=== PATIENT | male | born 1945 | race Caucasian/White ===

== ENCOUNTER 2017-01-23 06:26 | Day surgery (SDC) | payer MEDICARE, BC ==
[2017-01-23] MEDS ORDERED: NS 0.9% 1000 ML* 1,000 ML IV ONE ×2 (06:42→07:44)
[2017-01-23] MEDS ORDERED: Ketorolac INJ* 30 MG/ML 1 ML VIAL IV PUSH ONE (06:43)
[2017-01-23 07:18] LABS: Hematocrit 40 % (42-52); Hemoglobin 13.8 g/dl (14.0-18.0); Mean Corpuscular HGB Conc 34 g/dl (31-36); Mean Corpuscular Hemoglobin 31 pg (27-31); Mean Corpuscular Volume 91 fL (80-94); Mean Platelet Volume 8 um3 (7.4-10.4); Red Cell Distribution Width 14 % (10.5-15); White Blood Count 4.8 10^3/ul (3.5-10.8)
[2017-01-23 07:28] LABS: Albumin 4.4 g/dL (3.2-5.2); BUN/Creatinine Ratio 16.3 (8-20); Calcium 9.8 mg/dL (8.6-10.3); EGFR African American 70.2 (>60); EGFR Non-African American 54.6 (>60); Globulin 3.9 g/dL (2-4); Potassium 4.3 mmol/L (3.5-5.0); Total Bilirubin 0.6 mg/dL (0.2-1.0); Total Protein 8.3 g/dL (6.4-8.9)
--- NOTE | 2017-01-23 07:29 | RAD ---
INDICATION: Right flank abdominal pain. COMPARISON: There are no prior studies available for comparison. TECHNIQUE: A CT scan of the abdomen and pelvis was performed without intravenous or oral contrast. Contiguous axial sections were obtained from the lung bases through the symphysis pubis. Images were reconstructed in the coronal and sagittal planes. FINDINGS: There are small dependent infiltrates in both lower lobes suggestive of atelectasis. No pleural effusion is present. The liver and spleen are within normal limits in size without significant focal abnormality on this noncontrast study. No calcified gallstones are seen. The pancreas appears to be within normal limits in size. The adrenal glands appear to be within normal limits. The right kidney is slightly enlarged. There is perinephric stranding around the right kidney. There are 2 calculi in the mid and inferior portion of the right kidney measuring up to 4 mm in size. In addition, there is a calculus at the ureteropelvic junction measuring 5 x 8 mm in size causing moderate hydronephrosis. The aorta is ectatic and mildly tortuous. There is moderate calcific plaque present. No significant enlarged retroperitoneal lymph nodes are seen. The stomach, small and large bowel appear nondistended. The appendix is not visualized. There is mild descending and sigmoid diverticulosis without evidence for diverticulitis. No free intraperitoneal air or fluid is seen. No significant focal osseous abnormality is seen. IMPRESSION: THERE IS A 5 X 8 MM CALCULUS AT THE RIGHT URETEROPELVIC JUNCTION CAUSING MODERATE HYDRONEPHROSIS. THERE ARE 2 ADDITIONAL RIGHT RENAL CALCULI.
[2017-01-23] MEDS ORDERED: Tamsulosin CAP* 0.4 MG PO ONE (07:44)
[2017-01-23 09:04] LABS: Urine Bacteria Absent (Absent); Urine Bilirubin Negative (Negative); Urine Glucose Negative (Negative); Urine Nitrite Negative (Negative)
[2017-01-23] MEDS ORDERED: cefTRIAXone(*) 2 GM in NS 0.9% 100 ML* 100 ML IVPB ONE (09:58)
--- NOTE | 2017-01-23 10:01 | RAD ---
INDICATION: Right renal calculus. COMPARISON: Correlation is made with a prior CT of the abdomen and pelvis of the same date. TECHNIQUE: Frontal supine films of the abdomen were obtained. FINDINGS: The small bowel and colon appear nondistended. There is a faint calcific density which projects lateral to the L2 vertebral body on the right side which likely corresponds with the calculus noted at the right ureteropelvic junction. IMPRESSION: RIGHT URETEROPELVIC JUNCTION CALCULUS.
--- NOTE | 2017-01-23 10:20 | ED ---
I, Oh,Edith, scribed for Ayaz Malik MD on 01/23/17 at 0757 . Back Pain - HPI Summary HPI Summary: This 71 y/o male presents to ED with acute right lower back pain since 0200 AM this morning. Pt states that pain is waxing and waning and kept waking him up WHAT JOB TITLES MEAN. Pain does not radiates. Pain is currently dissolved after pain meds at time of initial evaluation. Pt denies any hx of back issues or kidney stones. Positive nausea. Negative dysuria, increased urinary urgency, fever, chills, or CP. - History of Current Complaint Chief Complaint: EDFlankPain Stated Complaint: RIGHT LOWER BACK PAIN Time Seen by Provider: 01/23/17 07:20 Hx Obtained From: Patient, Medical Records Onset/Duration: Sudden Onset Onset/Duration: Started Hours Ago, Atraumatic, Resolved Back Pain Location: Is Discrete @ - right lower back Pain Intensity: 6 Pain Scale Used: 0-10 Numeric Character: Dull Aggravating Symptom(s): Movement Alleviating Symptom(s): Nothing Associated Signs And Symptoms: Negative: Fever, Abdominal Pain, Bladder Incontinence - Allergies/Home Medications Allergies/Adverse Reactions: Allergies Allergy/AdvReac Type Severity Reaction Status Date / Time No Known Allergies Allergy Verified 09/04/16 08:53 PMH/Surg Hx/FS Hx/Imm Hx Endocrine/Hematology History: Denies: Hx Diabetes, Hx Thyroid Disease Cardiovascular History: Denies: Hx Congestive Heart Failure, Hx Hypertension, Hx Pacemaker/ICD, Other Cardiovascular Problems/Disorders Respiratory History: Reports: Hx Asthma, Hx Chronic Obstructive Pulmonary Disease (COPD) Denies: Other Respiratory Problems/Disorders GI History: Reports: Hx Gastroesophageal Reflux Disease - OK ON DAILY MED Denies: Hx Ulcer History: Denies: Hx Renal Disease Musculoskeletal History: Reports: Hx Arthritis - KNEES, Other Musculoskeletal History - LIMITED REACH-SPLITTING WOOD Sensory History: Reports: Hx Cataracts - PRE CATARACTS, Hx Contacts or Glasses - GLASSES Denies: Hx Hearing Aid Opthamlomology History: Reports: Hx Cataracts - PRE CATARACTS, Hx Contacts or Glasses - GLASSES Psychiatric History: Denies: Hx Panic Disorder - Surgical History Surgery Procedure, Year, and Place: Rt SHOULDER - RCT -@ [facility] 12/2015. JAIME KNEE REPLACEMENT - @[facility]. SHOULDER -RCT @ [facility] – [place] Hx Anesthesia Reactions: No Infectious Disease History: No Infectious Disease History: Denies: Hx Hepatitis, Hx Human Immunodeficiency Virus (HIV), Traveled Outside the [place] in Last 30 Days - Family History Known Family History: Positive: Diabetes - Positive to mother - Social History Alcohol Use: Occasionally Hx Substance Use: No Substance Use Type: Reports: None Hx Tobacco Use: Yes Smoking Status (MU): Former Smoker Review of Systems Negative: Fever, Chills Negative: Chest Pain Positive: Nausea. Negative: Abdominal Pain Negative: dysuria, urgency Positive: Other - right lower back pain Negative: Anxious, Depressed All Other Systems Reviewed And Are Negative: Yes Physical Exam Triage Information Reviewed: Yes Vital Signs On Initial Exam: Initial Vitals BP 162/89 01/23/17 06:32 Vital Signs Reviewed: Yes Appearance: Positive: Well-Appearing, No Pain Distress Skin: Positive: Warm, Skin Color Reflects Adequate Perfusion, Dry Head/Face: Positive: Normal Head/Face Inspection Eyes: Positive: EOMI, KARLA Neck: Positive: Supple, Nontender Respiratory/Lung Sounds: Positive: Clear to Auscultation, Breath Sounds Present Cardiovascular: Positive: RRR, Pulses are Symmetrical in both Upper and Lower Extremities Abdomen Description: Positive: Nontender, Soft Bowel Sounds: Positive: Present Musculoskeletal: Positive: Strength/ROM Intact Neurological: Positive: Sensory/Motor Intact, Alert, Oriented to Person Place, Time Psychiatric: Positive: Affect/Mood Appropriate AVPU Assessment: Alert - [place] Coma Scale Coma Scale Total: 15 Diagnostics - Vital Signs Vital Signs Temp Pulse Resp BP Pulse Ox 01/23/17 07:42 60 94 01/23/17 07:40 146/80 01/23/17 06:33 98.6 F 63 18 162/89 94 01/23/17 06:32 162/89 - Laboratory Lab Results: Lab Results 01/23/17 01/23/17 Range/Units 06:35 06:35 WBC 4.8 (3.5-10.8) 10^3/ul RBC 4.40 (4.0-5.4) 10^6/ul Hgb 13.8 L (14.0-18.0) g/dl Hct 40 L (42-52) % MCV 91 (80-94) fL MCH 31 (27-31) pg MCHC 34 (31-36) g/dl RDW 14 (10.5-15) % Plt Count 241 (150-450) 10^3/ul MPV 8 (7.4-10.4) um3 Neut % (Auto) 57.5 (38-83) % Lymph % (Auto) 19.0 L (25-47) % [place] % (Auto) 20.9 H (1-9) % Eos % (Auto) 1.9 (0-6) % Baso % (Auto) 0.7 (0-2) % Absolute Neuts (auto) 2.8 (1.5-7.7) 10^3/ul Absolute Lymphs (auto) 0.9 L (1.0-4.8) 10^3/ul Absolute Monos (auto) 1.0 H (0-0.8) 10^3/ul Absolute Eos (auto) 0.1 (0-0.6) 10^3/ul Absolute Basos (auto) 0 (0-0.2) 10^3/ul Absolute Nucleated RBC 0.01 10^3/ul Nucleated RBC % 0.2 Sodium 137 (133-145) mmol/L Potassium 4.3 (3.5-5.0) mmol/L Chloride 104 (101-111) mmol/L Carbon Dioxide 23 (22-32) mmol/L Anion Gap 10 (2-11) mmol/L BUN 21 (6-24) mg/dL Creatinine 1.29 H (0.67-1.17) mg/dL Est GFR ( Amer) 70.2 (>60) Est GFR (Non-Af Amer) 54.6 (>60) BUN/Creatinine Ratio 16.3 (8-20) Glucose 136 H (70-100) mg/dL Calcium 9.8 (8.6-10.3) mg/dL Total Bilirubin 0.60 (0.2-1.0) mg/dL AST 30 (13-39) U/L ALT 29 (7-52) U/L Alkaline Phosphatase 54 (34-104) U/L Total Protein 8.3 (6.4-8.9) g/dL Albumin 4.4 (3.2-5.2) g/dL Globulin 3.9 (2-4) g/dL Albumin/Globulin Ratio 1.1 (1-3) Result Diagrams: 01/23/17 06:35 01/23/17 06:35 Lab Statement: Any lab studies that have been ordered have been reviewed, and results considered in the medical decision making process. - Radiology Abd Xray Interpretation: Positive (See Comments) - RIGHT URETEROPELVIC JUNCTION CALCULUS. Radiology Interpretation Completed By: Radiologist - CT Ab/P CT Interpretation: Positive (See Comments) - THERE IS A 5 X 8 MM CALCULUS AT THE RIGHT URETEROPELVIC JUNCTION CAUSING MODERATE HYDRONEPHROSIS. THERE ARE 2 ADDITIONAL RIGHT RENAL CALCULI. CT Interpretation Completed By: Radiologist Re-Evaluation - Re-Evaluation First Eval Re-Evaluation Time: 09:16 Comment: MD in room to update pt on CT imaging results. Second Eval Re-Evaluation Time: 09:40 Comment: Update pt on urology consult. Pt confirms that he last ate 1800 PM yesterday. Plan of care involving OR and r/b/a of possible procedures, and pt is agreeable to stent. Back Pain Course/Dx - Course Assessment/Plan: WELL IN ED. DISCUSSED RESULTS WITH PATIENT AND DR JONES. ADMIT STABLE TO OR FOR STENT. - Diagnoses Provider Diagnoses: Kidney stone on right side - Provider Notifications Discussed Care of Patient With: Dr. Jones (Urology) paged at 0916 AM. Call returned at 0928 AM Discharge - Discharge Plan Condition: Stable Disposition: ADMITTED TO [facility] Referrals: Olinda ALEMAN CRACKER SPRAYER,Hillary [Primary Care Provider] - The documentation as recorded by the Justo vogel Soohyun accurately reflects the service I personally performed and the decisions made by me, Ayaz Malik MD.
[2017-01-23] MEDS ORDERED: Iohexol 180 (CONTRAST) 10 ML SDV IV ONE (10:47)
[2017-01-23] MEDS ORDERED: fentaNYL* 50 MCG/ML 2 ML VIAL (100 MCG VIAL) ONE (11:22)
[2017-01-23] MEDS ORDERED: Propofol* 10 MG/ML 20 ML BTL IV PUSH ONE (11:23)
[2017-01-23] MEDS ORDERED: Midazolam* 1 MG/ML 2 ML VIAL (2 MG) ONE (11:23)
[2017-01-23] MEDS ORDERED: Tamsulosin CAP* 0.4 MG ONE (12:14)
[2017-01-23] MEDS ORDERED: fentaNYL* 50 MCG/ML 2 ML VIAL (100 MCG VIAL) IV PRN (12:19)
[2017-01-23] MEDS ORDERED: Ketorolac INJ* 30 MG/ML 1 ML VIAL IV PRN (12:19)
[2017-01-23] MEDS ORDERED: Gentamicin ADULT (*) 40 MG/ML VIAL ONE (12:39)
--- NOTE | 2017-01-23 12:52 | RAD ---
INDICATION: Kidney stone right ureteropelvic junction, stent placement. COMPARISON: Comparison is made with a prior CT of the abdomen and pelvis from January 23, 2017. TECHNIQUE: 17 seconds of intermittent fluoroscopic guidance were provided and 4 spot films of the abdomen were centered on the right side. FINDINGS: There is partial opacification of the right renal collecting system. There is a small extravasation of contrast present adjacent to the renal pelvis. Subsequently there is placement of a double-J stent catheter on the right. The proximal portion of the catheter is likely within the distal portion of the renal pelvis. The distal portion projects over the region of the bladder. IMPRESSION: INTRAOPERATIVE CONTROL FILMS. CPT II Codes: 6045F
[2017-01-23] MEDS ORDERED: Furosemide IV* 10 MG/ML 2 ML VIAL (20 MG) ONE (13:08)
[2017-01-23] MEDS ORDERED: Ketorolac INJ* 30 MG/ML 1 ML VIAL ONE (13:27)
[2017-01-23 14:00] VITALS: BP 153/84
--- NOTE | 2017-01-23 14:48 | RAD ---
INDICATION: Postop stent placement. COMPARISON: Comparison is made with a prior CT and KUB series of the same date. TECHNIQUE: Frontal supine films of the abdomen were obtained. FINDINGS: The small bowel and colon appear nondistended. There is a double-J stent catheter present on the right side. There is a 6 mm calculus which projects over the lower pole of the right kidney. IMPRESSION: RIGHT RENAL CALCULUS, STATUS POST DOUBLE J STENT CATHETER PLACEMENT.
--- NOTE | 2017-01-23 15:24 | HP ---
ADMITTING HISTORY AND PHYSICAL: DATE OF ADMISSION: 01/23/17 SURGEON: Dr. Jones ADMITTING DIAGNOSES: 1. Right hydronephrosis. 2. Obstructing calculus, right proximal ureter. 3. Right renal calculi. PLANNED PROCEDURE: Today is urgent right stent insertion (to be followed in near future by lithotripsy). ADMITTING HISTORY AND PHYSICAL: Micky Lai is a 71-year-old gentleman who presented with right flank pain and nausea. He was noted to have an 8 x 5 mm calculus in the right proximal ureter with moderate right hydronephrosis and additional right renal calculi. PAST MEDICAL HISTORY: Significant for: 1. COPD. 2. Gastroesophageal reflux. MEDICATIONS ON ADMISSION: 1. Advair Diskus 100-50 one puff twice daily. 2. Aleve 220 mg at bedtime. 3. Flonase 2 sprays on both nostrils daily. 4. Vitamin D and CoQ10. 5. Zantac 75 mg 1 tablet daily. 6. Zyrtec 10 mg daily. ALLERGIES: No known drug allergies. REVIEW OF SYSTEMS: He denies any chest pain or shortness of breath. There is no history of diabetes mellitus or any major systemic illness. PHYSICAL EXAMINATION GENERAL: Reveals a pleasant elderly gentleman. VITAL SIGNS: Blood pressure is 159/81, pulse 72 per minute, regular, temperature 37.3. CARDIOVASCULAR EXAM: Regular rate and rhythm. S1 and S2. LUNGS: Clear bilaterally. ABDOMEN: Soft with right flank tenderness. ASSESSMENT AND PLAN: I reviewed the labs and the imaging studies and he indeed does have an obstructing calculus in the right proximal ureter. I discussed the options with him including the option of trying conservative management and alpha blockers, but because of the proximal location of the calculus and the presence of additional calculi in the kidney, he would like to proceed with right stent insertion, to be followed in the near future by lithotripsy. CC: DILAN Cook; Jez Jones MD * [id number]/[facility] #: [id number] MTDD
--- NOTE | 2017-01-23 23:52 | OP ---
DATE OF OPERATION: 01/23/17 - [facility] DATE OF : [birth year] - AGE: 71 years, male. SURGEON: Jez Jones MD ANESTHESIOLOGIST: Dr. Medellin. ANESTHESIA: Intravenous sedation. PRE-OP DIAGNOSES: 1. Right hydronephrosis. 2. Obstructing calculus, right proximal ureter. 3. Right renal calculi. POST-OP DIAGNOSES: 1. Right hydronephrosis. 2. Obstructing calculus, right proximal ureter. 3. Right renal calculi. 4. Prostate enlargement. OPERATIVE PROCEDURES: Cystoscopy, right retrograde pyelogram, right ureteral calculus manipulation, and right stent insertion. COMPLICATIONS: None. INDICATIONS: Micky Lai is a 71-year-old gentleman who presented with right flank pain and was noted to have an obstructing calculus. OPERATIVE FINDINGS: 1. Normal-appearing urethra. 2. Moderately enlarged vascular prostate. 3. Normal-appearing bladder. 4. Right hydronephrosis secondary to ureteropelvic junction calculus. POSTOPERATIVE CONDITION: Stable. STENT USED: 6-Icelandic stent, right ureter. DESCRIPTION OF PROCEDURE: After administration of intravenous sedation, the patient was placed in dorsal lithotomy position. Sequential compression devices were in place and functioning. Initial cystoscopy revealed normal- appearing urethra, moderately enlarged prostate. The bladder was examined and was unremarkable. Retrograde pyelogram revealed right hydronephrosis with a significantly dilated renal pelvis. A 6-Icelandic ureteral stent was introduced after the calculus had been manipulated proximally and stent was advanced under fluoroscopic monitoring with good proximal and distal positioning obtained. The patient tolerated the procedure satisfactorily and was transferred back to the recovery area in stable condition. [id number]/[facility] #: [id number] [facility]
== END 2017-01-23 10:58 | disposition home or self-care (01) ==
LOC: ED 06:26 → OR 10:58
PROVIDERS: ATTEND Urology
DX: N13.2 Hydronephrosis with renal and ureteral calculous obstruction (principal); J44.9 Chronic obstructive pulmonary disease, unspecified; K21.9 Gastro-esophageal reflux disease without esophagitis
CPT/HCPCS: 36415; 74000; 74176; 74420; 80053; 81003; 81015; 85025; 87077; 87086; 87186; 96374; 96375; 99283; C1876; J0696; J1580; J1885; J1940; J2250; J2704; J3010

== ENCOUNTER → 2017-02-01 10:13 | Day surgery (SDC) | payer MEDICARE, BC ==
[~2017-02-01 10:13] MED LIST: Buffered Lidocaine 1% SYRIN* 3 ML/SYR SYRINGE INTRADERM ONE; Dexamethasone IV* 4 MG/ML 1 ML (4 MG) ONE; EPHEDrine (Pressors)* 50 MG/ML VIAL ONE; HYDROmorphone* 1 MG/ML 1 ML SYR IV PRN; KETAMINE HCL* 50 MG/ML 10 ML VIAL ONE; Ketorolac INJ* 30 MG/ML 1 ML VIAL ONE; Lidocaine 2% PF* 5 ML VIAL ONE; Metoclopramide TAB* 10 MG ONE; Metoclopramide TAB* 10 MG PO ONE; Midazolam* 1 MG/ML 5 ML VIAL (5 MG) ONE; Ondansetron INJ* 2 MG/ML VIAL IV PRN; Ondansetron INJ* 2 MG/ML VIAL ONE; Propofol* 10 MG/ML 20 ML BTL IV PUSH ONE; cefTRIAXone(*) 2 GM ADDV.VIAL IVPB ONE; fentaNYL* 50 MCG/ML 2 ML VIAL (100 MCG VIAL) IV PRN; fentaNYL* 50 MCG/ML 2 ML VIAL (100 MCG VIAL) ONE; oxyCODONE/Acetamin 5/325 MG* TAB PO PRN
--- NOTE | 2017-02-01 10:58 | RAD ---
INDICATION: Right-sided nephrolithiasis COMPARISON: January 23, 2017 TECHNIQUE: A single view of the abdomen is submitted. FINDINGS: Bones: There are no acute bony findings. Soft tissues: The soft tissues appear normal. The psoas margins are sharp. Bowel gas pattern: Normal Calcifications: There is a 6 mm right renal calculus, unchanged. Other: Right ureteral stent, unchanged IMPRESSION: RIGHT-SIDED NEPHROLITHIASIS AND RIGHT URETERAL STENT, UNCHANGED
[2017-02-01 16:01] VITALS: BP 142/80
--- NOTE | 2017-02-01 17:24 | RAD ---
INDICATION: Postop right ureteral stent placement. COMPARISON: Comparison is made with a prior CT of the abdomen and pelvis from January 23, 2017 and a prior KUB series from earlier today approximately 7 hours earlier. TECHNIQUE: Frontal supine films of the abdomen were obtained. FINDINGS: The small bowel and colon appear nondistended. There is a double-J stent catheter present on the right side which appears unchanged. There is a 6 mm calculus which projects over the lower pole of the right kidney which appears unchanged. IMPRESSION: RIGHT RENAL CALCULUS, STATUS POST DOUBLE-J STENT CATHETER PLACEMENT.
--- NOTE | 2017-02-02 06:10 | OP ---
DATE OF OPERATION: 02/01/17 - [facility] DATE OF : [birth year] - AGE: 71 years, male. SURGEON: Jez Jones MD. ANESTHESIA: General. ANESTHESIOLOGIST: Dr. Cardoza. PRE-OP DIAGNOSIS: Right renal calculi. POST-OP DIAGNOSIS: Right renal calculi. OPERATIVE PROCEDURE: Shockwave lithotripsy of right renal calculus. COMPLICATIONS: None. POSTOPERATIVE CONDITION: Stable. INDICATIONS: Micky Lai is a 71-year-old gentleman who had undergone urgent right stent insertion for an obstructing calculus at the right ureteropelvic junction. He is now being brought in for lithotripsy. PROCEDURE: After induction of general anesthesia, the patient was placed on the lithotripsy table in supine position. The dominant calculus, which had previously been at the ureteropelvic junction was now in the lower pole of the right kidney. There was an additional smaller calculus in the upper pole. Attention was directed to the larger calculus. Shockwave lithotripsy was commenced at a rate of 60 shocks per minute. After the initial 300 shocks, there was a pause in lithotripsy for several minutes to minimize any potential trauma to the kidney. Lithotripsy was then resumed. The stone was fairly hard and a total of 2400 shocks were administered. The plan is to wait and obtain an x-ray in a few days to assess the degree of fragmentation prior to stent removal. The patient tolerated the procedure satisfactorily and was transferred back to the recovery area in stable condition. [id number]/[facility] #: [id number] MTDD
== END | disposition home or self-care (01) ==
LOC: OR 10:13
PROVIDERS: ATTEND Urology
DX: N20.0 Calculus of kidney (principal); J44.9 Chronic obstructive pulmonary disease, unspecified; G47.33 Obstructive sleep apnea (adult) (pediatric); D70.9 Neutropenia, unspecified
CPT/HCPCS: 74000; A9270-GY; J0696; J1100; J1885; J2250; J2405; J2704; J3010

== ENCOUNTER → 2017-02-10 08:05 | Day surgery (SDC) | payer MEDICARE, BC ==
--- NOTE | 2017-02-09 00:53 | HP ---
ADMITTING HISTORY AND PHYSICAL: DATE OF ADMISSION: 02/10/17 ADMITTING DIAGNOSIS: Right renal calculus. PLANNED PROCEDURE: Right ureteroscopy, pyeloscopy, possible laser lithotripsy of right renal calculus and right stent replacement. SURGEON: Dr. Jones. HISTORY OF PRESENT ILLNESS: Micky Lai is a 71-year-old gentleman who had recently been evaluated for an obstructing right ureteropelvic junction calculus. At that time, he was also noted to have additional right renal calculi. He had undergone right stent insertion followed by lithotripsy. On a followup x-ray, he was noted to have what appears to be a persistent 6 to 7 mm calculus adjacent to the proximal coil of the stent. I gave him the option of trying to remove the stent to see if he could pass this calculus or fragment spontaneously but because of the size he is concerned and would like to try and have an additional procedure to try to get rid of this calculus. PAST MEDICAL HISTORY: Significant for: 1. Renal calculi. 2. COPD. 3. Reflux. MEDICATIONS: 1. Aleve 220 mg a day. 2. Flonase 2 sprays on both nostrils daily. 3. Advair Diskus 1 puff twice daily. 4. Zantac 75 mg daily. 5. Zyrtec 10 mg daily. ALLERGIES: No known drug allergies. PHYSICAL EXAMINATION GENERAL: A pleasant healthy-appearing gentleman. VITAL SIGNS: Blood pressure is 120/82, pulse 65 per minute, regular, oxygen saturation 96% on room air. LUNGS: Clear bilaterally. CARDIOVASCULAR: Regular rate and rhythm. S1, S2. ABDOMEN: Soft with mild right flank tenderness. IMPRESSION: A 71-year-old gentleman with a persistent 6 to 7 mm calculus in the right kidney probably in the right renal pelvis. PLAN: Planned procedure is right ureteroscopy and pyeloscopy, possible laser lithotripsy and right stent replacement. [id number]/[facility] #: [id number] [facility]
[~2017-02-10 08:05] MED LIST changes: -Dexamethasone IV* 4 MG/ML 1 ML (4 MG) ONE; +DiMENhydriNATE IV* 50 MG/ML VIAL IV PUSH PRN; -EPHEDrine (Pressors)* 50 MG/ML VIAL ONE; -KETAMINE HCL* 50 MG/ML 10 ML VIAL ONE; -Ketorolac INJ* 30 MG/ML 1 ML VIAL ONE; -Lidocaine 2% PF* 5 ML VIAL ONE; -Metoclopramide TAB* 10 MG ONE; -Metoclopramide TAB* 10 MG PO ONE; -Ondansetron INJ* 2 MG/ML VIAL ONE; -Propofol* 10 MG/ML 20 ML BTL IV PUSH ONE; -fentaNYL* 50 MCG/ML 2 ML VIAL (100 MCG VIAL) ONE; -oxyCODONE/Acetamin 5/325 MG* TAB PO PRN
--- NOTE | 2017-02-10 11:25 | RAD ---
INDICATION: Right stent placement COMPARISONS: January 23, 2017 TECHNIQUE: Fluoroscopy was provided for a retrograde pyelogram and stent placement. Total fluoroscopy time is: 16 seconds FINDINGS: Contrast is noted within the renal collecting system which is mildly dilated. A ureteral stent is noted. IMPRESSION: FLUOROSCOPY WAS PROVIDED FOR A RETROGRADE PYELOGRAM AND STENT PLACEMENT CPT II Codes: 6045F
[2017-02-10 12:02] VITALS: BP 135/82
--- NOTE | 2017-02-10 13:42 | RAD ---
HISTORY: Right cystoscopy and stent insertion COMPARISONS: February 08, 2017 VIEWS: Frontal views of the abdomen. FINDINGS: BOWEL: There is a nonspecific bowel gas pattern, with nondilated small bowel gas noted. CALCULI: A right ureteral stent is noted. There is a 0.3 cm calculus overlying the right renal parenchymal shadow. BONES AND SOFT TISSUES: Degenerative changes are noted of the spine and hips OTHER FINDINGS: The lung bases are clear. There is no subphrenic gas. IMPRESSION: RIGHT NEPHROLITHIASIS WITH A RIGHT URETERAL STENT
--- NOTE | 2017-02-11 08:55 | OP ---
DATE OF OPERATION: 02/10/17 [facility] DATE OF : 41 SURGEON: Jez Jones MD ANESTHESIOLOGIST: Duke Millard MD ANESTHESIA: General. PRE-OP DIAGNOSES: 1. Right flank pain. 2. Right hydronephrosis. 3. Right renal calculus. POST-OP DIAGNOSES: 1. Right flank pain. 2. Right hydronephrosis. 3. Right renal calculus. OPERATIVE PROCEDURE: Cystoscopy, right stent removal, right retrograde pyelogram, right ureteroscopy and pyeloscopy, and right stent insertion. INDICATIONS: Micky Lai is a 71-year-old gentleman who had undergone urgent right stent insertion for an obstructing right proximal ureteral calculus. He subsequently underwent lithotripsy and on followup was noted to have a persistent calculus in the right kidney close to the proximal loop of the stent. COMPLICATIONS: None. STENT USED: 8-Djiboutian stent, right ureter. OPERATIVE FINDINGS: 1. [id number] enlarged prostate. 2. Few tiny calculi noted in right renal pelvis with no sizable calculus noted. POSTOPERATIVE CONDITION: Stable. DESCRIPTION OF PROCEDURE: After induction of general anesthesia, the patient was placed in dorsal lithotomy position. Sequential compression devices were in place and functioning. Initial cystoscopy revealed a normal-appearing urethra and a mildly enlarged prostate. The previously placed stent was removed. Right retrograde pyelogram revealed [id number] right hydronephrosis. A 6-Djiboutian semi-rigid ureteroscope was introduced initially and advanced into the proximal ureter. I did not visualize any calculi. Next, an access sheath was introduced and then a flexible uretero-scope was introduced and advanced into the right kidney. Pyeloscopy was performed. I was able to visualize the entire renal pelvis and all of the calyces. There were few tiny fragments noted in the renal pelvis, which were irrigated out. In the calyces, I could see some elements of Venkata's plaque, but no evidence of any sizable calculi noted. An 8-Djiboutian stent was introduced and positioned under fluoroscopy with good proximal and distal positioning obtained. The patient tolerated the procedure satisfactorily and was transferred back to the recovery area in stable condition. [id number]/[facility] #: [id number] [facility]
== END | disposition home or self-care (01) ==
LOC: OR 08:05
PROVIDERS: ATTEND Urology
DX: N13.2 Hydronephrosis with renal and ureteral calculous obstruction (principal); J44.9 Chronic obstructive pulmonary disease, unspecified; K21.9 Gastro-esophageal reflux disease without esophagitis; Z79.1 Long term (current) use of non-steroidal anti-inflammatories (NSAID)
CPT/HCPCS: 74000; 74420; C1876; J0696; J1580; J2250

== ENCOUNTER 2017-07-05 07:15 | Day surgery (SDC) | payer MEDICARE, BC ==
--- NOTE | 2017-06-23 10:18 | HP ---
CC: Hillary Prakash NP* ADMITTING HISTORY AND PHYSICAL: DATE OF ADMISSION: 07/05/17 ADMITTING DIAGNOSIS: Right renal calculus. PLANNED PROCEDURE: Shockwave lithotripsy of right renal calculus. SURGEON: Dr. Jones HISTORY OF PRESENT ILLNESS: Micky Lai is a 71-year-old gentleman with a history of recurrent renal calculi. He had undergone lithotripsy in January 2017 ; and, on a recent ultrasound, was noted to now have an 8 mm calculus in the lower pole of the left kidney. He's now being brought in for shockwave lithotripsy. PAST MEDICAL HISTORY: Significant for 1. COPD. 2. Renal calculi. 3. History of gastroesophageal reflux. MEDICATIONS: On admission: 1. Ranitidine 75 mg daily. 2. Vitamin D daily. ALLERGIES: No known drug allergies. FAMILY HISTORY: Negative for stones. REVIEW OF SYSTEMS: He is otherwise in excellent health. He denies any chest pain or shortness of breath. There is no history of diabetes mellitus, or any other major systemic illness. PHYSICAL EXAMINATION GENERAL: Reveals a pleasant, healthy-appearing gentleman. VITAL SIGNS: Blood pressure is 130/86, pulse 54 per minute regular, temperature 96.1, oxygen saturation 95% on room air. LUNGS: Clear bilaterally. CARDIOVASCULAR: Regular rate and rhythm. S1, S2. ABDOMEN: Soft without masses.. IMPRESSION: A 71-year-old gentleman with an 8 mm calculus in the right kidney who desires treatment of the same. I've discussed the procedure in detail, including possible risks of bleeding, infection, incomplete fragmentation and obstructing fragments. He understands and wishes to proceed as planned. PLAN: Shockwave lithotripsy of right renal calculus. [id number]/[facility] #: [id number] MTDD
[~2017-07-05 07:15] MED LIST changes: +Buffered Lidocaine 0.9% SYRIN* 5 ML/SYR SYRINGE INTRADERM ONE; -Buffered Lidocaine 1% SYRIN* 3 ML/SYR SYRINGE INTRADERM ONE; -DiMENhydriNATE IV* 50 MG/ML VIAL IV PUSH PRN; -HYDROmorphone* 1 MG/ML 1 ML SYR IV PRN; +Metoclopramide TAB* 10 MG PO ONE; -Midazolam* 1 MG/ML 5 ML VIAL (5 MG) ONE; -Ondansetron INJ* 2 MG/ML VIAL IV PRN; -cefTRIAXone(*) 2 GM ADDV.VIAL IVPB ONE; -fentaNYL* 50 MCG/ML 2 ML VIAL (100 MCG VIAL) IV PRN
[2017-07-05] MEDS ORDERED: cefTRIAXone(*) 2 GM ADDV.VIAL IVPB ONE (07:33)
[2017-07-05] MEDS ORDERED: Buffered Lidocaine 0.9% SYRIN* 5 ML/SYR SYRINGE ONE (07:33)
[2017-07-05] MEDS ORDERED: Metoclopramide TAB* 10 MG ONE (07:33)
--- NOTE | 2017-07-05 08:05 | RAD ---
Indication: Right renal calculus. Single view of the abdomen demonstrates calcifications overlying the lower pole of the right kidney. Bowel gas pattern is unremarkable. IMPRESSION: Calculus overlying the lower pole of the right kidney. This is unchanged from June 21, 2017.
[2017-07-05] MEDS ORDERED: Ondansetron INJ* 2 MG/ML VIAL ONE (08:32)
[2017-07-05] MEDS ORDERED: Propofol* 10 MG/ML 20 ML BTL IV PUSH ONE (08:32)
[2017-07-05] MEDS ORDERED: KETAMINE HCL* 50 MG/ML 10 ML VIAL ONE (08:32)
[2017-07-05] MEDS ORDERED: Lidocaine 2% PF * 5 ML VIAL ONE (08:32)
[2017-07-05] MEDS ORDERED: Dexamethasone IV* 4 MG/ML 1 ML (4 MG) ONE (08:32)
[2017-07-05] MEDS ORDERED: Ketorolac INJ* 30 MG/ML 1 ML VIAL ONE (08:32)
[2017-07-05] MEDS ORDERED: fentaNYL* 50 MCG/ML 2 ML VIAL (100 MCG VIAL) ONE (08:32)
[2017-07-05] MEDS ORDERED: Midazolam* 1 MG/ML 5 ML VIAL (5 MG) ONE (08:33)
[2017-07-05] MEDS ORDERED: DiMENhydriNATE IV* 50 MG/ML VIAL IV PUSH PRN (09:08)
[2017-07-05] MEDS ORDERED: oxyCODONE/Acetamin 5/325 MG* TAB PO PRN (09:08)
[2017-07-05] MEDS ORDERED: fentaNYL* 50 MCG/ML 2 ML VIAL (100 MCG VIAL) IV PRN (09:08)
[2017-07-05] MEDS ORDERED: Ondansetron INJ* 2 MG/ML VIAL IV PRN (09:08)
[2017-07-05] MEDS ORDERED: Furosemide IV* 10 MG/ML 2 ML VIAL (20 MG) ONE (09:26)
[2017-07-05] MEDS ORDERED: EPHEDrine (Pressors)* 50 MG/ML VIAL ONE (09:30)
[2017-07-05 11:15] VITALS: BP 132/67
--- NOTE | 2017-07-05 21:31 | OP ---
CC: Hillary Prakash NP; Jez Jones MD * DATE OF OPERATION: 07/05/17 - [facility] DATE OF : 41 SURGEON: Jez Jones MD. ANESTHESIOLOGIST: Dr. Cardoza. ANESTHESIA: General. PRE-OP DIAGNOSIS: Right renal calculus. POST-OP DIAGNOSIS: Right renal calculus. OPERATIVE PROCEDURE: Shockwave lithotripsy, right renal calculus. COMPLICATIONS: None. POSTOPERATIVE CONDITION: Stable. INDICATION: Micky Lai is a 71-year-old gentleman with a history of recurrent renal calculi. He was noted to have a calculus in the right kidney approximately 7 to 8 mm, and is now being brought in for lithotripsy. DESCRIPTION OF PROCEDURE: After induction of general anesthesia, the patient was placed on the lithotripsy table in a supine position. The calculus in the mid pole area of the right kidney was localized using fluoroscopy. Shockwave lithotripsy was commenced at a rate of 60 shocks per minute. After the initial 300 shocks, there was a brief pause in lithotripsy for several minutes in an effort to minimize any potential trauma to the kidney. Lithotripsy was then resumed and a total of 2400 shocks were administered. The patient tolerated the procedure satisfactorily and was transferred back to the recovery area in stable condition. [id number]/[facility] #: [id number] MTDD
== END 2017-07-05 11:32 | disposition home or self-care (01) ==
LOC: OR 07:15
PROVIDERS: ATTEND Urology
DX: N20.0 Calculus of kidney (principal); J44.9 Chronic obstructive pulmonary disease, unspecified; K21.9 Gastro-esophageal reflux disease without esophagitis; G47.33 Obstructive sleep apnea (adult) (pediatric)
CPT/HCPCS: 74000; A9270-GY; J0696; J1100; J1885; J1940; J2250; J2405; J2704; J3010

== ENCOUNTER 2018-08-04 08:06 | Day surgery (SDC) | payer MEDICARE, BC ==
--- NOTE | 2018-08-03 17:00 | HP ---
CC: Yenny Tyson NP * DATE OF ADMISSION: 08/04/2018. AGE: 72-year-old male. ADMITTING DIAGNOSES: 1. Calculi right proximal ureter. 2. Right hydronephrosis. PLANNED PROCEDURE: Right retrograde, right stent insertion, possible ureteroscopy (possibly to be followed by lithotripsy in the near future). SURGEON: Dr. Jez Jones. HISTORY OF PRESENT ILLNESS: Micky Lai is a 72-year-old gentleman with a history of recurrent renal calculi. He had previously undergone lithotripsy on a couple of occasions for right renal calculi and had been doing well up until recently, then he had right flank pain on a trip to [place]. An ultrasound in my office revealed moderate right hydronephrosis with a dilated proximal ureter and what appears to be either one or two stones in the proximal right ureter. He is now being brought in for urgent right stent insertion, possible ureteroscopy, possibly to be followed by lithotripsy in the near future. PAST MEDICAL HISTORY: Significant for: 1. Asthma. 2. GERD. MEDICATIONS ON ADMISSION: 1. Advair daily. 2. Ranitidine 150 mg one tablet daily. 3. Flonase as needed. ALLERGIES: No known drug allergies. REVIEW OF SYSTEMS: He is otherwise in excellent health. There is no history of diabetes mellitus or any other major systemic illness. PHYSICAL EXAMINATION GENERAL: Pleasant, elderly gentleman. VITAL SIGNS: Blood pressure 122/70, pulse 75 per minute and regular, temperature 96.3, oxygen saturation 97 percent on room air. CARDIOVASCULAR: Regular rate and rhythm. S1, S2. LUNGS: Clear bilaterally. ABDOMEN: Soft with right flank tenderness. IMPRESSION: Steegjq-phxl-[id number]-old gentleman with obstructing calculi in the right proximal ureter. PLAN: Right stent insertion, possible ureteroscopy (possibly to be followed by lithotripsy in the near future). [id number]/[facility] #: [id number] [facility]
[2018-08-04] MEDS ORDERED: cefTRIAXone(*) 2 GM ADDV.VIAL IVPB ONE ×2 (08:08→08:10)
[2018-08-04] MEDS ORDERED: Lidocaine 2% PF * 5 ML VIAL ONE (09:41)
[2018-08-04] MEDS ORDERED: Propofol* 10 MG/ML 20 ML BTL IV PUSH ONE (09:41)
[2018-08-04] MEDS ORDERED: Iohexol 180 (CONTRAST) 10 ML SDV IV ONE (09:53)
[2018-08-04] MEDS ORDERED: Midazolam* 1 MG/ML 2 ML VIAL (2 MG) ONE (10:03)
[2018-08-04] MEDS ORDERED: fentaNYL* 50 MCG/ML 2 ML VIAL (100 MCG VIAL) ONE (10:03)
[2018-08-04] MEDS ORDERED: Levalbuterol 0.63MG/3ML NEB* UNIT OF USE INH ONE ×2 (10:04→10:05)
[2018-08-04] MEDS ORDERED: Ondansetron INJ* 2 MG/ML VIAL ONE (10:04)
[2018-08-04] MEDS ORDERED: Dexamethasone IV* 4 MG/ML 1 ML (4 MG) ONE (10:04)
[2018-08-04] MEDS ORDERED: Gentamicin ADULT (*) 160 MG in NS 0.9% 100 ML* 100 ML IVPB ONE (11:00)
[2018-08-04] MEDS ORDERED: Albuterol/Ipratropium NEB.SOL* Albuterol 2.5 MG/Ipratropium 0.5 MG 3 ML INH ONE (11:00)
[2018-08-04] MEDS ORDERED: Naloxone* 0.4 MG/ML 1 ML VIAL IV PRN (11:30)
[2018-08-04] MEDS ORDERED: fentaNYL* 50 MCG/ML 2 ML VIAL (100 MCG VIAL) IV PRN (11:30)
[2018-08-04] MEDS ORDERED: Acetaminophen TAB* 325 MG PO PRN (11:30)
[2018-08-04] MEDS ORDERED: Tamsulosin CAP* 0.4 MG ONE (11:33)
--- NOTE | 2018-08-04 12:21 | RAD ---
INDICATION: Stent placement COMPARISONS: June 01, 2018 TECHNIQUE: Fluoroscopy was provided for a retrograde pyelogram and stent placement. Total fluoroscopy time is: 6 seconds FINDINGS: Spot images demonstrate contrast within the renal collecting system which is dilated. A ureteral stent is noted. IMPRESSION: FLUOROSCOPY WAS PROVIDED FOR A RETROGRADE PYELOGRAM AND STENT PLACEMENT CPT II Codes: G9500
[2018-08-04 12:22] VITALS: BP 148/80
--- NOTE | 2018-08-04 13:06 | RAD ---
Indication: Right-sided stent placement. Single view of the abdomen demonstrates placement of a right ureteral stent. A calculi overlying the right renal hilum is noted. Bowel gas pattern obscures detail of the origin silhouette.. IMPRESSION: Right ureteral stent is in place. There is calculi overlying the right renal pelvis.
--- NOTE | 2018-08-05 00:53 | OP ---
DATE OF OPERATION: 08/04/18 - [facility] DATE OF : 41. SURGEON: Dr. Jones. ANESTHESIOLOGIST: Dr. De Oliveira. ANESTHESIA: General. PRE-OP DIAGNOSES: 1. Right hydronephrosis. 2. Obstructing calculi, right proximal ureter. POST-OP DIAGNOSES: 1. Right hydronephrosis. 2. Obstructing calculi, right proximal ureter. 3. Prostate enlargement. OPERATIVE PROCEDURE: Cystoscopy, right retrograde pyelogram, right ureteral calculus manipulation, and right stent insertion. OPERATIVE FINDINGS: 1. Moderately enlarged prostate. 2. Right hydronephrosis. COMPLICATIONS: None. POSTOPERATIVE CONDITION: Stable. STENT USED: 7-Cypriot stent right ureter. SPECIMEN: Urine culture. INDICATIONS: Micky Lai is a 72-year-old gentleman with a history of recurrent renal calculi. He was recently evaluated for right hydronephrosis and is being brought in for urgent right stent insertion to be followed at some point in the near future by lithotripsy. DESCRIPTION OF PROCEDURE: After induction of general anesthesia, the patient was placed in dorsal lithotomy position. Sequential compression devices were in place and functioning. Initial cystoscopy revealed a normal appearing urethra and moderately large prostate with lateral lobe as well as median lobe enlargement. The bladder was examined and was unremarkable. A guidewire was introduced into the right ureter, retrograde pyelogram revealed significant right hydronephrosis and proximal hydroureter. Using an open ended catheter the calculus in the upper ureter was mobilized more proximally. Once this was done there was a significant amount of urine drain from the right kidney and a sample was taken and sent for culture. A 7-Cypriot stent was introduced and positioned under fluoroscopy with good proximal and distal positioning obtained. The bladder was emptied. The patient tolerated the procedure satisfactorily and was transferred back to the recovery area in stable condition. [id number]/[facility] #: [id number] [facility]
== END 2018-08-04 13:41 | disposition home or self-care (01) ==
LOC: OR 08:06
PROVIDERS: ATTEND Urology
DX: N13.2 Hydronephrosis with renal and ureteral calculous obstruction (principal); N40.0 Benign prostatic hyperplasia without lower urinary tract symptoms; Z87.442 Personal history of urinary calculi; J45.909 Unspecified asthma, uncomplicated; K21.9 Gastro-esophageal reflux disease without esophagitis; J44.9 Chronic obstructive pulmonary disease, unspecified; G47.33 Obstructive sleep apnea (adult) (pediatric)
CPT/HCPCS: 74018; 74420; 87086; A9270-GY; C1876; J0696; J1100; J1580; J2250; J2405; J2704; J3010

== ENCOUNTER → 2018-08-15 10:03 | Day surgery (SDC) | payer MEDICARE, BC ==
[~2018-08-15 10:03] MED LIST changes: +Acetaminophen TAB* 325 MG PO PRN; +Dexamethasone IV* 4 MG/ML 1 ML (4 MG) ONE; +DiMENhydriNATE IV* 50 MG/ML VIAL IV PUSH PRN; +Famotidine IV* 10 MG/ML 2 ML (20 mg) IV ONE; +Famotidine IV* 10 MG/ML 2 ML (20 mg) ONE; +Furosemide IV* 10 MG/ML 2 ML VIAL (20 MG) ONE; +HYDROmorphone INJ1* 1 MG/ML SYRINGE IV PRN; +Ketorolac INJ* 30 MG/ML 1 ML VIAL ONE; +Lidocaine 2% PF * 5 ML VIAL ONE; -Metoclopramide TAB* 10 MG PO ONE; +Midazolam* 1 MG/ML 5 ML VIAL (5 MG) ONE; +Naloxone* 0.4 MG/ML 1 ML VIAL IV PRN; +Ondansetron INJ* 2 MG/ML VIAL ONE; +Propofol* 10 MG/ML 20 ML BTL IV PUSH ONE; +cefTRIAXone(*) 2 GM ADDV.VIAL IVPB ONE; +fentaNYL* 50 MCG/ML 2 ML VIAL (100 MCG VIAL) ONE; +oxyCODONE TAB* 5 MG TAB PO PRN
[2018-08-15 13:41] VITALS: BP 134/77
--- NOTE | 2018-08-15 14:20 | RAD ---
Indication: Post RIGHT ureteral stent placement /shock wave lithotripsy. Comparison: August 04, 2018 Technique: Supine view of the abdomen. Report: Fragmentation of previous solitary stone at level of the RIGHT renal pelvis now with smaller fragments at the lower pole calyces measuring up to 0.4 cm maximum dimension. 0.3 cm stone or phlebolith approximating the distal segment of the ureteral stent. Old RIGHT L3 and L4 transverse process fractures. Unremarkable soft tissue contours. IMPRESSION: #. Fragmentation of previous solitary stone at level of the RIGHT renal pelvis now with smaller fragments at the lower pole calyces measuring up to 0.4 cm maximum dimension. 0.3 cm stone or phlebolith approximating the distal segment of the ureteral stent.
--- NOTE | 2018-08-16 02:08 | OP ---
DATE OF OPERATION: 08/15/18 - [facility] DATE OF : 41. SURGEON: Jez Jones M.D. ANESTHESIOLOGIST: Dr. Esparza. ANESTHESIA: General. PRE-OP DIAGNOSIS: Right renal calculus. POST-OP DIAGNOSIS: Right renal calculus. OPERATIVE PROCEDURE: Shockwave lithotripsy, right renal calculus. COMPLICATIONS: None. POSTOPERATIVE CONDITION: Stable. INDICATIONS: Micky Lai is a 72-year-old gentleman, who had undergone urgent stent insertion because of an obstructing calculus in the right proximal ureter. The calculus was manipulated into the right kidney at the time of stent insertion and he is now being brought in for lithotripsy for definitive treatment of the calculus. DESCRIPTION OF PROCEDURE: After induction of general anesthesia, the patient was placed on the lithotripsy table in supine position. The calculus, which was in the [id number] pole area of the right kidney was identified using fluoroscopy. Shockwave lithotripsy was commenced at a rate of 60 shocks per minute. After the initial 300 shocks, there was a pause in lithotripsy for several minutes in an effort to minimize any potential trauma to the kidney. Lithotripsy was then resumed and intermittent fluoroscopy revealed good localization and fragmentation, a total of 2500 shocks were administered. The patient tolerated the procedure satisfactorily and was transferred back to the recovery area in stable condition. [id number]/[facility] #: [id number] MTDD
== END | disposition home or self-care (01) ==
LOC: OR 10:03
PROVIDERS: ATTEND Urology
DX: N20.0 Calculus of kidney (principal); J44.9 Chronic obstructive pulmonary disease, unspecified; G47.33 Obstructive sleep apnea (adult) (pediatric); Z87.891 Personal history of nicotine dependence; K21.9 Gastro-esophageal reflux disease without esophagitis; M19.90 Unspecified osteoarthritis, unspecified site
CPT/HCPCS: 74018; J0696; J1100; J1885; J1940; J2250; J2405; J2704; J3010

== ENCOUNTER 2020-12-12 13:20 | Observation (INO) ==
[2020-12-12 14:22] LABS: ABS Eosinophils 0.1 10^3/ul (0-0.6); ABS Lymphocytes 0.8 10^3/ul (1.0-4.8); ABS Monocytes 1.3 10^3/ul (0-0.8); ABS Neutrophils 1.9 10^3/ul (1.5-7.7); Eosinophil % 2.2 %; Hematocrit 37 % (42-52); Hemoglobin 12.5 g/dL (14.0-18.0); Lymphocyte % 20.5 %; Mean Corpuscular HGB Conc 34 g/dL (31-36); Mean Corpuscular Hemoglobin 31 pg (27-31); Mean Corpuscular Volume 93 fL (80-94); Mean Platelet Volume 7.5 fL (7.4-10.4); Platelet Count 190 10^3/uL (150-450); Red Blood Count 3.98 10^6 /uL (4.18-5.48); Red Cell Distribution Width 13 % (10-15); White Blood Count 4.1 10^3/uL (3.5-10.8)
[2020-12-12 14:50] LABS: Troponin I 0.01 ng/mL (<0.03)
[2020-12-12 14:51] LABS: ALT 26 U/L (7-52); AST 32 U/L (13-39); Albumin 4.2 g/dL (3.2-5.2); Albumin/Globulin Ratio 1.2 (1-3); Alkaline Phosphatase 57 U/L (34-104); Anion Gap 7 mmol/L (2-11); BUN/Creatinine Ratio 18.8 (8-20); Blood Urea Nitrogen 24 mg/dL (6-24); CO2 Carbon Dioxide 25 mmol/L (22-32); Calcium 9.7 mg/dL (8.6-10.3); Chloride 105 mmol/L (101-111); EGFR African American 65.9 (>60); EGFR Non-African American 54.5 (>60); Globulin 3.5 g/dL (2-4); Glucose 104 mg/dL (70-100); Sodium 137 mmol/L (135-145); Total Protein 7.7 g/dL (6.4-8.9)
[2020-12-12 15:03] LABS: TSH Ultra Thyroid Stim Horm 1.78 mcIU/mL (0.34-5.60)
[2020-12-12 17:26] LABS: Cholesterol 201 mg/dL; HDL Cholesterol 38.6 mg/dL; LDL Cholesterol 140 mg/dL; Triglycerides 110 mg/dL
[2020-12-12 17:32] LABS: % Iron Saturation 17 % (15-55); Iron 86 ug/dL (50-212); Total Iron Binding Capacity 504 mcg/dL (250-450); Transferrin 360 mg/dL (203-362); Unsaturated Iron Binding < 489 ug/dL
[2020-12-12 17:52] LABS: Ferritin 21.7 ng/mL (24-336)
[2020-12-12] MEDS ORDERED: Enoxaparin 40 MG/0.4 ML SYR SUBCUT SCH ×2 (18:00)
[2020-12-12 18:13] LABS: Urine Appearance Clear; Urine Bilirubin Negative (Negative); Urine Blood Negative (Negative); Urine Color Yellow; Urine Glucose Negative (Negative); Urine Ketones Negative (Negative); Urine Nitrite Negative (Negative); Urine Protein Negative (Negative); Urine Specific Gravity 1.017 (1.010-1.030); Urine Urobilinogen Negative (Negative)
[2020-12-12] MEDS: Mometasone/Formoter 100/5 MDI INH SCH (19:56)
[2020-12-13 04:39] LABS: Hematocrit 37 % (42-52); Hemoglobin 12.6 g/dL (14.0-18.0); Mean Corpuscular HGB Conc 34 g/dL (31-36); Mean Corpuscular Hemoglobin 32 pg (27-31); Mean Corpuscular Volume 94 fL (80-94); Mean Platelet Volume 7.6 fL (7.4-10.4); Platelet Count 162 10^3/uL (150-450); Red Blood Count 3.95 10^6 /uL (4.18-5.48); Red Cell Distribution Width 13 % (10-15); White Blood Count 3.7 10^3/uL (3.5-10.8)
[2020-12-13 04:54] LABS: BUN/Creatinine Ratio 18.5 (8-20); Calcium 9.1 mg/dL (8.6-10.3); EGFR African American 68.4 (>60); EGFR Non-African American 56.5 (>60); Potassium 3.8 mmol/L (3.5-5.0)
[2020-12-13] MEDS: Mometasone/Formoter 100/5 MDI INH SCH (07:31)
[2020-12-13] MEDS ORDERED: Fluticasone NASAL SPRAY 50MCG 16 gm SPRAY BTL INTRANASAL SCH (09:00)
[2020-12-13 12:10] VITALS: BP 129/71
== END 2020-12-13 14:00 | disposition home or self-care (01) ==
LOC: MEDTELE 13:20 → ED 13:20 → MEDTELE 18:55
PROVIDERS: ADMIT Hospitalist; ATTEND Internal Medicine